=== PATIENT | female | born 1995 | race Caucasian/White ===

== ENCOUNTER → 2022-12-13 | Outpatient (REF) | payer OTHER ==
[2022-12-13 17:13] LABS: CHOLESTEROL RISK RATIO 3.86 (<5); HDL CHOLESTEROL 41.4 MG/DL (>40); LDL CHOLESTEROL 88.6 MG/DL (<100); NON-HDL-C 118.6 MG/DL
[2022-12-13 17:16] LABS: THYROID STIMULATING HORMONE 1.929 uIU/ML (0.55-4.78); TOTAL 25(OH) VITAMIN D 22.4 NG/ML (20.0-100.0)
== END ==
LOC: M LAB REF 16:29
PROVIDERS: ATTEND Pediatrics
DX: E55.9 Vitamin D deficiency, unspecified (principal); E78.5 Hyperlipidemia, unspecified

== ENCOUNTER 2023-11-02 22:26 | Emergency (ER) | payer BC ==
[~2023-11-02] VITALS: Ht 165.1 cm; Wt 103.4 kg
[2023-11-03] MEDS: LIDOCAINE 1% MDV 20ML VIAL SC ONE (01:05)
[2023-11-03] MEDS: BOOSTRIX VACCINE (TETANUS/DIPHTH/ACEL. PERTUSSIS) 0.5ML SYR IM ONE (01:26)
[2023-11-03] MEDS: BACITRACIN OINTMENT 30GM TUBE TOP ONE (01:27)
[2023-11-03 01:52] VITALS: BP 132/56; TEMP 97.9; O2SAT 99
== END 2023-11-03 01:53 | disposition home or self-care (01) ==
LOC: M ED 22:26
DX: S61.217A Laceration without foreign body of left little finger without damage to nail, initial encounter (principal); Y92.019 Unspecified place in single-family (private) house as the place of occurrence of the external cause; Y93.9 Activity, unspecified; Y99.9 Unspecified external cause status; W26.0XXA Contact with knife, initial encounter; Z23 Encounter for immunization